=== PATIENT | male | born 2000 | race Caucasian/White ===

== ENCOUNTER 2022-07-27 07:29 | Emergency (ER) | payer SELFPAY ==
[2022-07-27] MEDS ORDERED: PROPOFOL 0 ML ONE (07:52)
[2022-07-27] MEDS ORDERED: PROPOFOL 20 ML ONE (08:10)
== END 2022-07-27 09:17 | disposition home or self-care (01) ==
LOC: CSHERS 07:29
DX: S43.004A Unspecified dislocation of right shoulder joint, initial encounter (principal); F17.200 Nicotine dependence, unspecified, uncomplicated; X58.XXXA Exposure to other specified factors, initial encounter
CPT/HCPCS: 23650; 99152; J2704

== ENCOUNTER 2022-08-17 08:00 | Emergency (ER) | payer SELFPAY ==
[2022-08-17] MEDS ORDERED: Ketorolac Tromethamine 30 MG/ML VIAL ONE (08:49)
== END 2022-08-17 09:15 | disposition home or self-care (01) ==
LOC: CSHERS 08:00
DX: R68.3 Clubbing of fingers (principal); F17.200 Nicotine dependence, unspecified, uncomplicated
CPT/HCPCS: 71045; 96372; J1885

== ENCOUNTER 2022-12-29 21:11 | Emergency (ER) | payer OTHER, SELFPAY ==
[2022-12-29] MEDS ORDERED: Ketorolac Tromethamine 30 MG/ML VIAL ONE (21:55)
== END 2022-12-29 22:35 | disposition home or self-care (01) ==
LOC: CSHERS 21:11
DX: M24.311 Pathological dislocation of right shoulder, not elsewhere classified (principal); F17.200 Nicotine dependence, unspecified, uncomplicated
CPT/HCPCS: 96372; J1885

== ENCOUNTER 2023-02-27 22:21 | Emergency (ER) | payer OTHER ==
[2023-02-27] MEDS ORDERED: Morphine 4 MG/ML VIAL ONE (23:56)
[2023-02-28 00:17] LABS: #Basophils 0.1 10x3/uL (0.0-0.2); #Eosinphils 0.1 10x3/uL (0.0-0.5); #Monocytes 0.7 10x3/uL (0.0-1.1); #Neutrophils 3.1 10x3/uL (1.5-8.4); %Basophils 0.9 % (0.0-2.0); %Eosinophils 2.4 % (0.0-6.0); %Lymphocytes 28.5 % (18.0-47.0); %Monocytes 12.4 % (0.0-10.0); %Neutrophils 55.8 % (40.0-75.0); Hematocrit 47.8 % (38.8-50.0); Hemoglobin 16.2 g/dL (13.5-17.5); Mean Corpuscular HGB CONC 33.9 g/dL (32.0-36.0); Mean Corpuscular Hemoglobin 28.1 pg (27.0-33.0); Mean Platelet Volume 10.1 fl (7.4-10.4); Platelet Count 296 10x3/uL (150-450); RBC Distribution Width 20.5 % (11.5-14.5); Red Blood Cell (RBC) Count 5.76 10x6/uL (4.32-5.72); White Blood Cell (WBC) Count 5.5 10x3/uL (3.5-10.5)
[2023-02-28 00:31] LABS: ALT (SGPT) 13 U/L (8-55); AST (SGOT) 20 U/L (5-34); Albumin 4.4 g/dL (3.5-5.0); Alkaline Phosphatase 74 U/L (40-110); Anion Gap 14 mmol/L (10-20); BUN (Urea Nitrogen) 5 mg/dL (8.9-20.6); Calc. Creatinine Clearance 0 mL/min (70-130); Calcium 9.8 mg/dL (7.8-10.44); Carbon Dioxide 21 mmol/L (22-29); Chloride 106 mmol/L (98-107); Estimated GFR 125; Globulin 2.9 g/dL (2.4-3.5); Glucose 88 mg/dL (70-105); Lipase 8 U/L (8-78); Potassium 3.2 mmol/L (3.5-5.1); Protein, Total 7.3 g/dL (6.0-8.3); Sodium 138 mmol/L (136-145)
== END 2023-02-28 01:57 | disposition home or self-care (01) ==
LOC: CSHERS 22:21
DX: R10.31 Right lower quadrant pain (principal); F17.210 Nicotine dependence, cigarettes, uncomplicated
CPT/HCPCS: 80053; 83605; 83690; 85025; 96361; 96374; J2270

== ENCOUNTER 2023-03-26 06:45 | Emergency (ER) | payer OTHER ==
[2023-03-26 07:28] LABS: #Eosinphils 0.3 10x3/uL (0.0-0.5); #Monocytes 0.5 10x3/uL (0.0-1.1); #Neutrophils 3.2 10x3/uL (1.5-8.4); %Basophils 0.6 % (0.0-2.0); %Eosinophils 4.3 % (0.0-6.0); %Lymphocytes 35.4 % (18.0-47.0); %Monocytes 8.6 % (0.0-10.0); %Neutrophils 50.9 % (40.0-75.0); Hematocrit 44.5 % (38.8-50.0); Hemoglobin 15.6 g/dL (13.5-17.5); Mean Corpuscular HGB CONC 35.1 g/dL (32.0-36.0); Mean Corpuscular Hemoglobin 29.1 pg (27.0-33.0); Mean Platelet Volume 10.1 fl (7.4-10.4); Platelet Count 300 10x3/uL (150-450); RBC Distribution Width 17.9 % (11.5-14.5); Red Blood Cell (RBC) Count 5.36 10x6/uL (4.32-5.72); White Blood Cell (WBC) Count 6.3 10x3/uL (3.5-10.5)
[2023-03-26] MEDS ORDERED: Morphine 2 MG/ML VIAL ONE (07:28)
[2023-03-26] MEDS ORDERED: Morphine 4 MG/ML VIAL ONE (07:28)
[2023-03-26 07:51] LABS: ALT (SGPT) 18 U/L (8-55); AST (SGOT) 21 U/L (5-34); Albumin 4.1 g/dL (3.5-5.0); Alkaline Phosphatase 91 U/L (40-110); Anion Gap 16 mmol/L (10-20); BUN (Urea Nitrogen) 11 mg/dL (8.9-20.6); Bilirubin, Total 1.3 mg/dL (0.2-1.2); Calc. Creatinine Clearance 0 mL/min (70-130); Calcium 9.5 mg/dL (7.8-10.44); Carbon Dioxide 19 mmol/L (22-29); Chloride 107 mmol/L (98-107); Estimated GFR 123; Globulin 2.8 g/dL (2.4-3.5); Glucose 115 mg/dL (70-105); Lipase 15 U/L (8-78); Potassium 3.4 mmol/L (3.5-5.1); Protein, Total 6.9 g/dL (6.0-8.3); Sodium 139 mmol/L (136-145)
[2023-03-26] MEDS ORDERED: Promethazine HCl 25 MG in Sodium Chloride 0.9% 50 ML IVPB SCH (08:00)
[2023-03-26] MEDS ORDERED: Dicyclomine 20 MG/2 ML VIAL ONE (08:06)
== END 2023-03-26 10:32 | disposition home or self-care (01) ==
LOC: CSHERS 06:45
DX: K51.90 Ulcerative colitis, unspecified, without complications (principal); F17.210 Nicotine dependence, cigarettes, uncomplicated
CPT/HCPCS: 36415; 80053; 83690; 85025; 86140; 96361; 96365; 96372; 96375; J2270; J2272; J2550

== ENCOUNTER 2023-04-11 13:33 | Emergency (ER) | payer OTHER ==
[2023-04-11 15:01] LABS: #Eosinphils 0.2 10x3/uL (0.0-0.5); #Monocytes 0.6 10x3/uL (0.0-1.1); #Neutrophils 4.8 10x3/uL (1.5-8.4); %Basophils 0.5 % (0.0-2.0); %Lymphocytes 24.1 % (18.0-47.0); %Monocytes 8.1 % (0.0-10.0); %Neutrophils 64.9 % (40.0-75.0); Hematocrit 39.6 % (38.8-50.0); Hemoglobin 13.3 g/dL (13.5-17.5); Mean Corpuscular HGB CONC 33.6 g/dL (32.0-36.0); Mean Corpuscular Hemoglobin 30.5 pg (27.0-33.0); Mean Corpuscular Volume 90.8 fl (81.2-95.1); Mean Platelet Volume 10.2 fl (7.4-10.4); Platelet Count 245 10x3/uL (150-450); Red Blood Cell (RBC) Count 4.36 10x6/uL (4.32-5.72); White Blood Cell (WBC) Count 7.4 10x3/uL (3.5-10.5)
[2023-04-11 15:13] LABS: ALT (SGPT) 14 U/L (8-55); AST (SGOT) 15 U/L (5-34); Acetaminophen Less than 10 mcg/mL (10.0-30.0); Albumin 3.6 g/dL (3.5-5.0); Alcohol Less than 10.0 mg/dL (Less than 10); Alkaline Phosphatase 72 U/L (40-110); Anion Gap 13 mmol/L (10-20); BUN (Urea Nitrogen) 15 mg/dL (8.9-20.6); Bilirubin, Total 1.1 mg/dL (0.2-1.2); CK (CPK) 78 U/L (30-200); Calc. Creatinine Clearance 0 mL/min (70-130); Calcium 8.6 mg/dL (7.8-10.44); Carbon Dioxide 21 mmol/L (22-29); Chloride 111 mmol/L (98-107); Estimated GFR 125; Globulin 1.8 g/dL (2.4-3.5); Glucose 106 mg/dL (70-105); Protein, Total 5.4 g/dL (6.0-8.3); Salicylate Less than 8.0 mg/dL (15.0-30.0); Sodium 141 mmol/L (136-145)
[2023-04-11 17:41] LABS: Bilirubin Neg (Negative); Blood, Urine Negative (Negative); Clarity Clear (Clear); Glucose, Urine (Dipstick) Normal (Negative); Ketone, Urine Negative (Negative); Leukocyte Negative (Negative); Nitrite Negative (Negative); Protein, Urine (Dipstick) Negative (Neg-Trace); Urobilinogen Normal mg/dL (Less than 2)
[2023-04-11 17:50] LABS: Bacteria/HPF 1+ HPF (None Seen); CAUTI Indications for Culture Alt mental st,lethar; Mucous/LPF 3+ LPF (<2+); RBC/HPF 0-3 HPF (0-3); Squamous Epithelial 0-3 HPF (0-3); WBC/HPF 0-3 HPF (0-3)
[2023-04-11 17:52] LABS: Amphetamine Detected (NotDetected); Barbiturates Screen Not Detected (NotDetected); Benzodiazepine Screen Not Detected (NotDetected); Cocaine Metabolite Screen Not Detected (NotDetected); Methadone Not Detected (NotDetected); Methamphetamine Detected (NotDetected); Opiate Screen Not Detected (NotDetected); Oxycodone Screen Not Detected (NotDetected); Phencyclidine (PCP) Not Detected (NotDetected); THC/Cannabinoid Screen Detected (NotDetected); Tricyclic Screen Not Detected (NotDetected); Urine Culture Reflex No No
== END 2023-04-11 20:56 ==
LOC: CSHERS 13:33
DX: S61.512A Laceration without foreign body of left wrist, initial encounter (principal); F15.20 Other stimulant dependence, uncomplicated; F17.210 Nicotine dependence, cigarettes, uncomplicated; X58.XXXA Exposure to other specified factors, initial encounter
CPT/HCPCS: 80053; 80306; 80307; 81001; 82550; 85025; 93005